=== PATIENT | male | born 1985 | race Caucasian/White ===

== ENCOUNTER 2020-10-20 17:08 | Emergency (ER) | payer BC ==
[2020-10-20] MEDS ORDERED: Promethazine 25 MG/ML SDV IM ONE (17:21)
[2020-10-20] MEDS ORDERED: Orphenadrine 60 MG/2 ML Inj IM STA (17:21)
--- NOTE | 2020-10-20 18:09 | EDM.PDOC ---
ED HPI GENERAL MEDICAL PROBLEM - General Chief Complaint: ENT Problem Stated Complaint: TOOTH PAIN Time Seen by Provider: 10/20/20 17:10 Source of Information: Reports: Patient History Limitations: Reports: No Limitations - History of Present Illness INITIAL COMMENTS - FREE TEXT/NARRATIVE: Patient comes emergency department today with complaints of a dental pain and questionable dental abscess. This patient was seen in the [facility] yesterday and was told that he has a tooth that either needs to be extracted a root canal. He was started on amoxicillin. He is only taken 2 doses of his amoxicillin. But now that he is taking his amoxicillin today and his Tylenol and his ibuprofen his dental pain is actually much better and he is now more concerned about his chronic neck pain. This patient has some chronic neck and back complaints. He has had no recent falls trauma or injury. His neck is very stiff and tight especially at the base of his skull. He has no paresthesias of his upper or lower extremities. No change in the functionality of his upper or lower extremities. He has had no chiropractic manipulation. No paresthesias of his upper or lower extremities. He has not had any injections or interventions to his chronic pain in his neck. Is much more tight in his neck than it typically would be. He has had some nausea today and vomited once but he has not eaten anything most of the day and taking many of his pills and he typically gets nauseated when he takes his medications that are chronic for him without eating. No fever no chills. No cough or congestion. No chest pain weakness dizziness lightheadedness. No loss of bowel or bladder. No abdominal pain. No diarrhea. NO Covid Exposure no COVID symptoms. Neck Pain Score (Numeric/FACES): 8 - Related Data Allergies Allergy/AdvReac Type Severity Reaction Status Date / Time No Known Allergies Allergy Verified 10/20/20 17:22 Home Meds: Home Meds Acetaminophen [Pain Relief] 650 mg PO Q6H 10/20/20 [History] Amoxicillin 500 mg PO TID 10/20/20 [History] Cholecalciferol (Vitamin D3) [Vitamin D3] 1,000 unit PO DAILY 10/20/20 [History] Gabapentin [Neurontin] 600 mg PO TID 10/20/20 [History] Ibuprofen 800 mg PO TID 10/20/20 [History] methocarbamoL [Methocarbamol] 500 mg PO TID 10/20/20 [History] Past Medical History - Past Health History Medical/Surgical History: Denies Medical/Surgical History Neurological History: Reports: Other (See Below) Other Neuro History: chronic neck/back pain Social & Family History - Tobacco Use Tobacco Use Status *Q: Current Every Day Tobacco User Years of Tobacco use: 19 Packs/Tins Daily: 1 ED ROS GENERAL - Review of Systems Review Of Systems: Comprehensive ROS is negative, except as noted in HPI. ED EXAM, GENERAL - Physical Exam Exam: See Below Exam Limited By: No Limitations General Appearance: Alert, WD/WN, No Apparent Distress Eye Exam: Bilateral Eye: EOMI, Normal Inspection, PERRL Ears: Normal External Exam, Normal Canal, Normal TMs Nose: Normal Inspection, Normal Mucosa Throat/Mouth: Normal Lips, Normal Voice, No Airway Compromise, Other (No swelling of the face or asymmetry of the face or neck.). No: Normal Oropharynx (Patient does have some dental caries in the left upper jaw. There is no swelling erythema induration swelling fluctuance concerning for abscess. There is no drainage in the oropharynx. Otherwise than the chronic caries in his mouth it is unremarkable.) Head: Atraumatic, Normocephalic. No: Facial Swelling, Facial Tenderness, Sinus Tenderness Neck: Normal Inspection, Supple, Non-Tender, Full Range of Motion, Limited Range of Motion. No: Lymphadenopathy (L), Lymphadenopathy (R), Tender Lateral, Tender Midline Respiratory/Chest: No Respiratory Distress, Lungs Clear, Normal Breath Sounds, Chest Non-Tender Cardiovascular: Normal Peripheral Pulses, Regular Rate, Rhythm GI/Abdominal: Normal Bowel Sounds, Soft Back Exam: Normal Inspection Extremities: Normal Inspection, Normal Range of Motion, No Pedal Edema, Normal Capillary Refill Neurological: Alert, Oriented, CN II-XII Intact, Normal Cognition, Normal Gait, Normal Reflexes, No Motor/Sensory Deficits Psychiatric: Normal Affect, Normal Mood Skin Exam: Warm, Dry, Intact, Normal Color, No Rash Course - Vital Signs Last Recorded V/S: Last Vital Signs Temp 98.3 F 10/20/20 17:15 Pulse 95 10/20/20 17:15 Resp 16 10/20/20 17:15 BP 173/104 H 10/20/20 18:20 Pulse Ox 99 10/20/20 17:15 - Orders/Labs/Meds Meds: Medications Discontinued Medications Generic Name Dose Route Start Last Admin Trade Name Colten PRN Reason Stop Dose Admin Orphenadrine Citrate 60 mg 10/20/20 17:21 10/20/20 17:33 Norflex IM 10/20/20 17:22 60 mg NOW STA Administration Promethazine HCl 25 mg 10/20/20 17:21 10/20/20 17:33 Phenergan IM 10/20/20 17:22 25 mg ONETIME ONE Administration - Re-Assessments/Exams Free Text/Narrative Re-Assessment/Exam: 10/20/20 There is no evidence of dental abscess. She was given Norflex IM as well as Phenergan IM most likely for an acute exacerbation of his chronic neck pain. He has no neurological function change by exam. He does have quite a bit of improvement of his symptoms following the above therapy. He should continue with his amoxicillin as well as his chronic medications. As of note he is quite hypertensive. He was just recently in the primary care clinic setting where they did not start him on any blood pressure medications but they sent him home with a blood pressure monitor. He is also on chronic ibuprofen 800 mg 3 times a day that he has been on for 3 years. This is concerning for kidney injury in the presence of chronic NSAID usage as well as hypertension development. He has no hypertensive urgency or emergency clinical findings. His blood pressure did improve while he was here although it is still elevated. I will have him follow-up with primary care clinic to get him managed for his hypertension. Departure - Departure Time of Disposition: 18:04 Disposition: Home, Self-Care 01 Clinical Impression: Neck pain, Dental infection Hypertension Qualifiers: Hypertension type: unspecified Qualified Code(s): I10 - Essential (primary) hypertension - Discharge Information Referrals: PCP,None [Primary Care Provider] - Forms: ED Department Discharge, ED Return to Work/School Form Additional Instructions: Continue with the Amoxicillin at home. Continue your other medications. Consider discontinuation with consultation with your PCP of the longterm Ibuprofen as this could be a cause of your blood pressure as well. Consider Physical therapy for your acute on chronic neck pain. Return to the ED if new or worsening symptoms. Follow up with Dentist as discussed with them yesterday. Sepsis Event Note (ED) - Evaluation Sepsis Screening Result: No Definite Risk - Focused Exam Vital Signs: Vital Signs Temp Pulse Resp BP Pulse Ox 10/20/20 18:20 173/104 H 10/20/20 17:45 176/111 H 10/20/20 17:15 98.3 F 95 16 193/131 H 99
== END 2020-10-20 18:25 | disposition home or self-care (01) ==
LOC: VM.ED 17:08
DX: K04.7 Periapical abscess without sinus (principal); K02.9 Dental caries, unspecified; M54.2 Cervicalgia; I10 Essential (primary) hypertension; Z72.0 Tobacco use
CPT/HCPCS: 96372; 99283; J2360; J2550

== ENCOUNTER 2023-08-19 12:24 | Emergency (ER) | payer OTHER, BC ==
[2023-08-19] MEDS: Take Home: Clindamycin HCl 150 MG Cap, 6 Cap Pack PO ONE (13:28)
[2023-08-19] MEDS: Clindamycin HCl 150 MG Cap PO ONE (13:29)
== END 2023-08-19 13:31 | disposition home or self-care (01) ==
LOC: VM.ED 12:24
DX: K04.7 Periapical abscess without sinus (principal); Z79.899 Other long term (current) drug therapy
CPT/HCPCS: 99283; A9270-GY